=== PATIENT | male | born 1985 | race Caucasian/White ===

== ENCOUNTER 2023-04-24 15:16 | Emergency (ER) | payer SELFPAY ==
[~2023-04-24] VITALS: Ht 182.9 cm; Wt 90.9 kg
[2023-04-24 15:30] VITALS: TEMP 97.3
[2023-04-24 18:53] VITALS: BP 127/90; PULSE 72
== END 2023-04-24 18:53 | disposition home or self-care (01) ==
LOC: COL.ER 15:16
DX: S61.211A Laceration without foreign body of left index finger without damage to nail, initial encounter (principal); Z23 Encounter for immunization; W26.0XXA Contact with knife, initial encounter